=== PATIENT | male | born 1990 | race African-American/Black ===

== ENCOUNTER 2017-11-22 02:17 | Emergency (ER) | payer SELFPAY ==
[~2017-11-22] VITALS: Ht 182.9 cm; Wt 75.0 kg
[2017-11-22] MEDS ORDERED: KETOROLAC 30MG/ML VIAL IM ONE (06:45)
[2017-11-22] MEDS ORDERED: IBUPROFEN 800MG TABLET PO ONE (07:15)
[2017-11-22 08:13] VITALS: BP 117/62
== END 2017-11-22 08:20 | disposition home or self-care (01) ==
LOC: ER 02:17
DX: M54.5 Low back pain (principal); V43.62XA Car passenger injured in collision with other type car in traffic accident, initial encounter; Y93.89 Activity, other specified; Y92.410 Unspecified street and highway as the place of occurrence of the external cause
CPT/HCPCS: 72070; 72100; 99284; J1885